=== PATIENT | male | born 1995 | race Caucasian/White ===

== ENCOUNTER 2016-07-31 10:00 | Emergency (ER) | payer MEDICAID ==
[~2016-07-31] VITALS: Ht 180.3 cm; Wt 77.9 kg
[2016-07-31 10:02] VITALS: BP 120/72
[2016-07-31] MEDS ORDERED: DIPH,PERTUSS(ACELL),TET VAC/PF 0.5 ML IM-VACC ONE ×2 (10:28→10:30)
[2016-07-31] MEDS ORDERED: LIDOCAINE 1%, 20ML SQ ONE (10:30)
[2016-07-31] MEDS ORDERED: LIDOCAINE 1%, 20ML ONE (10:33)
== END 2016-07-31 11:25 | disposition home or self-care (01) ==
LOC: ED 11:24
DX: S01.411A Laceration without foreign body of right cheek and temporomandibular area, initial encounter (principal); W22.8XXA Striking against or struck by other objects, initial encounter; Y93.89 Activity, other specified; Y92.69 Other specified industrial and construction area as the place of occurrence of the external cause; Y99.8 Other external cause status
CPT/HCPCS: 12011; 90471; 90715